=== PATIENT | male | born 1955 | race Caucasian/White ===

== ENCOUNTER 2021-02-23 19:01 | Emergency (ER) | payer OTHER ==
[~2021-02-23] VITALS: Ht 167.6 cm; Wt 79.8 kg
[2021-02-23 19:07] VITALS: BP 120/71
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
--- NOTE | 2021-02-23 19:10 | NUR ---
ELISA CHAN AT BEDSIDE PERFORMING ASSESSMENT.
[2021-02-23] MEDS ORDERED: NACL 0.9% 1,000 ML IV ONE (19:20)
--- NOTE | 2021-02-23 19:34 | NUR ---
XRAY AT BEDSIDE.
--- NOTE | 2021-02-23 19:34 | NUR ---
IV 22 G L FA EST. 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
[2021-02-23 19:37] LABS: BASOPHILS % (AUTO) 0.6 % (0.0-2.0); EOSINOPHILS # (AUTO) 0.1 K/uL (0-0.4); EOSINOPHILS % (AUTO) 1.7 % (0.0-4.0); HEMATOCRIT 42.7 % (36-52); HEMOGLOBIN 14.6 g/dL (12.0-18.0); LYMPHOCYTES # (AUTO) 1.8 K/uL (2.0-11.5); MEAN CORPUSCULAR HEMOGLOBIN 31 pg (27-31); MEAN CORPUSCULAR HGB CONC 34 g/dL (33-37); MONOCYTES # (AUTO) 0.5 K/uL (0.8-1.0); MONOCYTES % (AUTO) 8.9 % (1.7-9.3); NEUTROPHILS # (AUTO) 3.4 K/uL (1.8-7.7); NEUTROPHILS % (AUTO) 58.8 % (42.2-75.2); PLATELET COUNT (AUTO) 124 K/uL (140-450); RED BLOOD CELL COUNT(AUTO) 4.69 MIL/uL (4.20-6.10); RED CELL DISTRIBUTION WIDTH 13.6 % (11.6-13.7); WHITE BLOOD COUNT (AUTO) 5.8 K/uL (4.8-10.8)
[2021-02-23 19:55] LABS: ALBUMIN 3.5 g/dL (3.4-5.0); ANION GAP 17.5 (8-16); CREATININE 1.5 mg/dL (0.6-1.3); POTASSIUM 3.5 mmol/L (3.5-5.1); TOTAL BILIRUBIN 0.3 mg/dL (0.0-1.0)
--- NOTE | 2021-02-23 20:00 | NUR ---
WITH CONSENT FROM PATIENT, SPOKE WITH PTS SON (LÓPEZ), UPDATING REGARDING PT STATE. SON STATED JOCELIN (OTHER SON) WOULD LIKE TO BE CONTACTED REGARDING FUTURE UPDATES: [phone].
--- NOTE | 2021-02-23 21:01 | NUR ---
WITH CONSENT FROM PT, SPOKE WITH PTS FRANCISCO KIDD), GAVE UPDATE REGARDING PT STATUS. WOULD LIKE A CALL BACK, SHE WILL BE PICKING PT UP ([phone]).
[2021-02-23] MEDS ORDERED: INSULIN REGULAR, HUMAN 100 UNIT/ML VIAL IVP ONE (21:10)
--- NOTE | 2021-02-23 21:38 | NUR ---
CALLED DHAVAL, PTS KULDEEPECE, AND LET HER KNOW PT IS BEING DISCHARGED. SHE IS ON HER WAY. PT UPDATED.
[2021-02-23 21:48] VITALS: BP 120/76
--- NOTE | 2021-02-23 21:48 | NUR ---
Patient discharged with v/s stable. Written and verbal after care instructions given and explained. Patient alert, oriented and verbalized understanding of instructions. Ambulatory with steady gait. All questions addressed prior to discharge. ID band removed. Patient advised to follow up with PMD. Opportunity to ask questions provided and answered. PTS NIECE IN LOBBY TO DRIVE PT HOME.
== END 2021-02-23 21:48 | disposition home or self-care (01) ==
LOC: MED 19:01
DX: E11.65 Type 2 diabetes mellitus with hyperglycemia (principal); F10.129 Alcohol abuse with intoxication, unspecified; E86.0 Dehydration
CPT/HCPCS: 36415; 71045; 80053; 83690; 85025; 96361; 96374; 99284; G0482; J1815; J7030